=== PATIENT | female | born 1995 | race Caucasian/White ===

== ENCOUNTER 2018-08-10 13:07 | Emergency (ER) | payer MEDICAID ==
[2018-08-10] MEDS ORDERED: KETOROLAC 30 MG INJ IV (13:38)
[2018-08-10] MEDS: IBUPROFEN 600 MG TAB PO (13:53)
[2018-08-10 13:55] LABS: URINE BLOOD (Dip) POC Negative (NEGATIVE); URINE GLUCOSE (Dip) POC Negative (NEGATIVE); URINE KETONES (Dip) POC Negative (NEGATIVE); URINE LEUKOCYTE EST (Dip) POC Negative (NEGATIVE); URINE NITRITE (Dip) POC Negative (NEGATIVE); URINE TOTAL PROTEIN POC Negative (NEGATIVE)
[2018-08-10] MEDS ORDERED: DIPHENHYDRAMINE 50 MG INJ IV (14:00)
[2018-08-10] MEDS ORDERED: SOD CHLORIDE 0.9% 1,000 ML IV (14:00)
[2018-08-10] MEDS ORDERED: METOCLOPRAMIDE 10 MG INJ IV (14:00)
== END 2018-08-10 15:05 | disposition home or self-care (01) ==
LOC: FTE 13:07
DX: N76.0 Acute vaginitis (principal)
CPT/HCPCS: 70450; 81003; 81025; 99284-25

== ENCOUNTER 2019-04-02 18:39 | Emergency (ER) | payer BC, MEDICAID ==
[2019-04-02] MEDS: KETOROLAC 30 MG INJ IM (20:21)
[2019-04-02] MEDS: HYDROCODONE/APAP (10/325) TAB PO (20:30)
== END 2019-04-02 20:55 | disposition home or self-care (01) ==
LOC: FTE 18:39
DX: M62.838 Other muscle spasm (principal)
CPT/HCPCS: 81003; 81025; 96372; 99284-25